=== PATIENT | male | born 1945 | race Hispanic/Latino ===

== ENCOUNTER 2017-10-02 13:57 | Emergency (ER) | payer OTHER ==
[2017-10-02 14:03] VITALS: BP 161/85
--- NOTE | 2017-10-02 14:26 | Emergency Department Report ---
HPI - General Chief Complaint: Skin Rash Time Seen by Provider: 10/02/17 14:10 - HPI HPI: 72-year-old male presents to ED complaining of pustular rash to his left flank region 3 days. He denies any sick contacts. She states she had some pain in that area before he noticed the rash. States he is visiting from [place] and does not recall getting a herpes zoster vaccination. he denies sinus chills/nausea/vomiting/abdominal pain or any other problems. ED Past Medical Hx - Social History Smoking Status: Never Smoker Substance Use Type: None - Medications Home Medications: Home Medications Medication Instructions Recorded Confirmed Last Taken Type Acyclovir [Zovirax Tab] 800 mg PO TID #21 tablet 10/02/17 Unknown Rx Acyclovir [Zovirax] 1 applic TP BID #1 tube 10/02/17 Unknown Rx Ibuprofen [Motrin] 800 mg PO Q8HR PRN #30 tablet 10/02/17 Unknown Rx ED Review of Systems ROS: Stated complaint: SORES ON BODY Other details as noted in HPI Constitutional: denies: chills, fever Eyes: denies: eye pain, eye discharge, vision change ENT: denies: ear pain, throat pain Respiratory: denies: cough, shortness of breath, wheezing Cardiovascular: denies: chest pain, palpitations Endocrine: no symptoms reported Gastrointestinal: denies: abdominal pain, nausea, diarrhea Genitourinary: denies: urgency, dysuria Musculoskeletal: denies: back pain, joint swelling, arthralgia Skin: pruritus. denies: rash, lesions Neurological: denies: headache, weakness, paresthesias Psychiatric: denies: anxiety, depression Hematological/Lymphatic: denies: easy bleeding, easy bruising Physical Exam - Physical Exam Vital Signs: Vital Signs 10/02/17 14:01 Temperature 97 F L Pulse Rate 89 Respiratory 18 Rate Blood Pressure 161/85 O2 Sat by Pulse 100 Oximetry Physical Exam: GENERAL: Alert and oriented x3, no apparent distress, Normal Gait, atraumatic. HEAD: Head is normocephalic and a-traumatic. NECK: Supple. Non edematous, No carotid bruits. No lymphadenopathy or thyromegaly. No C-spine tenderness LUNGS: Symetrical with respiration, No wheezing, no rales or crackles, CTAB. HEART: S1, S2 present, regular rate and rhythm without murmur, no rubs, no gallops. Non tender to palpation ABDOMEN: No organomegaly was noted,Positive bowel sounds, soft, and non- distended. . Nontender to palpation on all Quadrants, NO CVA tenderness. SKIN: Generalized, erythematous, vesicular, grouped vesicles along the left lower abdomen going up to the back following a linear pattern Warm and dry, No lesions, No ulceration or induration present. ED Course Vital Signs 10/02/17 14:01 Temperature 97 F L Pulse Rate 89 Respiratory 18 Rate Blood Pressure 161/85 O2 Sat by Pulse 100 Oximetry ED Medical Decision Making - Medical Decision Making 72-year-old male presents with herpes zoster dermatitis ED course: Patient received 800 mg of Acyclovir in ED I discussed with patient and that shingles rash is contagious and can spread. I discussed the patient to stop scratching hypertension rash. I discussed with the patient to take antivirals as prescribed 3 times a day. I also discussed with the patient to use Zovirax cream on the rash to help with itching and reduce lesion Vital signs are normal. he is acute instructions. He is neurologically intact no neuro deficits, instructions given Critical care attestation.: If time is entered above; I have spent that time in minutes in the direct care of this critically ill patient, excluding procedure time. ED Disposition Clinical Impression: Herpes zoster dermatitis Shingles rash Qualifiers: Herpes zoster complications: without complications Qualified Code(s): B02.9 - Zoster without complications Disposition: DC-01 TO HOME OR SELFCARE Is pt being admited?: No Does the pt Need Aspirin: No Condition: Stable Instructions: Herpes Zoster (ED) Additional Instructions: Make sure to follow up with the primary care physician as discussed. Take all your medications as you've been prescribed. If you have any worsening symptoms or develop new symptoms please return to ED immediately. Prescriptions: Acyclovir [Zovirax Tab] 800 mg PO TID #21 tablet Acyclovir [Zovirax] 1 applic TP BID #1 tube Ibuprofen [Motrin] 800 mg PO Q8HR PRN #30 tablet PRN Reason: Pain Forms: Accompanied Note Time of Disposition: 14:35
[2017-10-02] MEDS ORDERED: ZOVIRAX PO ONE (15:30)
== END 2017-10-02 14:55 | disposition home or self-care (01) ==
LOC: ED 13:57
DX: B02.9 Zoster without complications (principal)
CPT/HCPCS: 99282